=== PATIENT | female | born 1995 | race Caucasian/White ===

== ENCOUNTER 2022-03-26 01:52 | Emergency (ER) | payer SELFPAY ==
[~2022-03-26] VITALS: Ht 165.1 cm; Wt 56.7 kg
[2022-03-26 02:14] VITALS: BP 123/60
[2022-03-26] MEDS ORDERED: ONDANSETRON HCL/PF 4 MG/2 ML VIAL ONE (02:21)
[2022-03-26] MEDS ORDERED: ONDANSETRON HCL/PF 4 MG/2 ML VIAL IM ONE (02:30)
== END 2022-03-26 02:38 | disposition home or self-care (01) ==
LOC: ER 02:00
DX: F10.129 Alcohol abuse with intoxication, unspecified (principal); R11.2 Nausea with vomiting, unspecified; Z60.2 Problems related to living alone; Y90.9 Presence of alcohol in blood, level not specified
CPT/HCPCS: 96372; 99283; J2405